=== PATIENT | male | born 1955 | race Caucasian/White ===

== ENCOUNTER 2022-12-19 20:37 | Emergency (ER) | payer MEDICARE ==
[~2022-12-19] VITALS: Ht 170.2 cm; Wt 86.2 kg
[2022-12-19 20:39] VITALS: BP 106/55; PULSE 97; RESP 16; TEMP 97.6; O2SAT 95
[2022-12-19 21:40] VITALS: BP 110/78; PULSE 87; RESP 16; O2SAT 95
[2022-12-19] MEDS ORDERED: BENADRYL PO STA (22:01)
[2022-12-19] MEDS ORDERED: BACTRIM DS PO STA (22:06)
--- NOTE | 2022-12-19 22:08 | ER.PDOC ---
General Chief Complaint: Skin Rash/Abscess Stated Complaint: POSS INSECT BITES Time seen by MD: 22:02 Source: patient Exam Limitations: no limitations History of Present Illness Initial Comments Insect bites to lower extremities that happened a few days ago. No fever or chills. Patient was walking outside in his yard when it happened. Severity: moderate Location: RLE, LLE Quality: itchy Identified Cause: possibly Past Medical History Medical History: high cholesterol Surgical History: cholecystectomy, tonsillectomy Family History Significant Family History: no pertinent family hx Social History Smoking: non-smoker Alcohol Use: none Drug Use: none Constitutional: no symptoms reported EENTM: no symptoms reported Respiratory: no symptoms reported Cardiovascular: no symptoms reported Gastrointestinal: no symptoms reported Skin: see HPI All Other Systems: Reviewed and Negative Physical Exam General Appearance: alert, no distress Skin: skin rash (Bite mcgee) Location: back (4 bite spots lower back), RLE, LLE Character: vesicular (2 vesicles, one on each medial thigh), erythematous Extremities: non-tender, nml ROM, no edema Neck: trachea midline, no swelling Respiratory: no resp. distress, breath sounds nml CVS: reg. rate & rhythm, heart sounds nml Abdomen: non-tender, no organomegaly NEURO/PSYCH: oriented x 3, CN's nml as tested, motor nml, sensation nml, moo d/affect nml Results/Orders Results/Orders Orders - HOLDEN MONAHAN MD Diphenhydramine Hcl (Benadryl) (12/19/22 22:01) Sulfamethoxazole/Trimethoprim (Bactrim D (12/19/22 22:06) Vital Signs Date Time Temp Pulse Resp B/P (MAP) Pulse Ox O2 Delivery O2 Flow Rate FiO2 12/19/22 20:39 97.6 97 16 12/19/22 20:39 97.6 97 16 106/55 (72) 95 Room Air* 0 21 12/19/22 20:39 97.6 97 16 95 Progress Progress Patient received Bactrim DS and Benadryl and itching is better. ER DEPART Departure Time of Disposition: 22:07 Disposition: 01 HOME / SELF CARE / HOMELESS Impression: Primary Impression: Insect bites Additional Impression: Soft tissue infection Condition: Improved Referrals: PCP,UNKNOWN (PCP) PRIMARY CARE PROVIDER Additional Instructions: Hydroxyzine Bactrim DS Follow-up with your PCP in 2-3 days Return to ED if worsening or concerns Duration or Time Spent with Pa: 10 min Problem Qualifiers Primary Impression: Insect bites Encounter type: initial encounter Site of insect bite: unspecified site Qualified Codes: W57.XXXA - Bitten or stung by nonvenomous insect and other nonvenomous arthropods, initial encounter HOLDEN MONAHAN MD Dec 19, 2022 22:07
[2022-12-19] MEDS ORDERED: BENADRYL PO ONE (22:09)
[2022-12-19] MEDS ORDERED: BACTRIM DS ONE (22:10)
[2022-12-19 22:17] VITALS: BP 110/80; PULSE 88; RESP 16; O2SAT 97
== END 2022-12-19 22:20 | disposition home or self-care (01) ==
LOC: ER 20:37
DX: S30.860A Insect bite (nonvenomous) of lower back and pelvis, initial encounter (principal); L08.9 Local infection of the skin and subcutaneous tissue, unspecified; E78.00 Pure hypercholesterolemia, unspecified; Z90.49 Acquired absence of other specified parts of digestive tract; Z90.89 Acquired absence of other organs; W57.XXXA Bitten or stung by nonvenomous insect and other nonvenomous arthropods, initial encounter; Y93.01 Activity, walking, marching and hiking; Y92.89 Other specified places as the place of occurrence of the external cause; Y99.8 Other external cause status
CPT/HCPCS: 99283; Q0163